=== PATIENT | female | born 1950 | race Caucasian/White ===

== ENCOUNTER 2016-06-18 12:16 | Inpatient (IN) | payer OTHER ==
[~2016-06-18] VITALS: Ht 157.5 cm; Wt 81.6 kg
--- NOTE | 2016-06-18 12:22 | NUR ---
66 Y/O FEMALE C/O "BURNING" PAIN IN CENTER OF CHEST X 1 WEEK; NO PAIN AT REST, ONLY WITH AMBULATION. DENIES SOB. DENIES DIAPHORESIS. DENIES N/V/D BUT STATES PAIN IS WORSE AFTER EATING, "I FEEL LIKE I DONT DIGEST MY FOOD". SAW PMD THURS AND HAD EKG.
[2016-06-18] MEDS ORDERED: DEXILANT60 M1 PO (12:53)
--- NOTE | 2016-06-18 13:06 | ED GENERAL ADULT ---
History of Present Illness General Chief Complaint: General Adult Stated Complaint: BURNING IN CHEST ? ACID REFLUX Source: patient, family, old records Exam Limitations: no limitations Vital Signs & Intake/Output Vital Signs & Intake/Output Vital Signs Date Time Temp Pulse Resp B/P Pulse O2 O2 Flow FiO2 Ox Delivery Rate 06/18 1754 78 20 138/76 100 Room Air 06/18 1616 79 20 131/84 96 Room Air 06/18 1439 73 18 139/80 94 Room Air 06/18 1221 98.6 91 18 172/85 99 Room Air Allergies Coded Allergies: No Known Allergies (06/18/16) Reconcile Medications Dexlansoprazole (Dexilant) 60 MG CAP.BP 1 CAP PO DAILY GI (Reported) Triage Note: 66 Y/O FEMALE C/O "BURNING" PAIN IN CENTER OF CHEST X 1 WEEK; NO PAIN AT REST, ONLY WITH AMBULATION. DENIES SOB. DENIES DIAPHORESIS. DENIES N/V/D BUT STATES PAIN IS WORSE AFTER EATING, "I FEEL LIKE I DONT DIGEST MY FOOD". SAW PMD THURS AND HAD EKG. Triage Nurses Notes Reviewed? yes Onset: Last week Duration: day(s):, constant, continues in ED, getting worse Timing: recent history Injury Environment: home Severity: severe Modifying Factors: Worsens With: movement. Associated Symptoms: chest pain LMP (ages 10-50): post menopausal : No Patient currently breastfeeds: No HPI: 1 week prior to admission patient complains of substernal burning worse with exertion improved with rest progressive from moderate to severe radiating upwards. No pain at rest. She denies fever chills nausea vomiting diarrhea abdominal pain headache dysuria rash bleeding. She has had recent change in her gastroesophageal reflux medications with changes in appetite. Past History Travel History Traveled to [place] past 21 day No Medical History Any Pertinent Medical History? 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 No Review of Systems Review of Systems Constitutional: Reports: no symptoms. EENTM: Reports: no symptoms. Respiratory: Reports: no symptoms. Cardiovascular: Reports: see HPI. GI: Reports: see HPI, nausea. Genitourinary: Reports: no symptoms. Musculoskeletal: Reports: no symptoms. Skin: Reports: no symptoms. Neurological/Psychological: Reports: no symptoms. Hematologic/Endocrine: Reports: no symptoms. Immunologic/Allergic: Reports: no symptoms. All Other Systems: Reviewed and Negative Physical Exam Physical Exam General Appearance: well developed/nourished, alert, awake, anxious, moderate distress, obese Head: atraumatic, normal appearance Eyes: Bilateral: normal appearance, PERRL, EOMI. Ears, Nose, Throat: normal pharynx, normal ENT inspection Neck: normal inspection, supple, full range of motion, no midline tenderness Respiratory: normal breath sounds, chest non-tender, no respiratory distress, quiet respiration, lungs clear Cardiovascular: regular rate/rhythm, normal peripheral pulses, norml femoral pulses equa Peripheral Pulses: 4+ carotid (R), 4+ carotid (L), 2+ radial (R), 2+ radial (L) Gastrointestinal: normal bowel sounds, soft, non-tender, no organomegaly Back: normal inspection, normal range of motion, no vertebral tenderness Extremities: normal inspection, normal capillary refill, normal range of motion, no edema Neurologic/Psych: no motor/sensory deficits, awake, alert, oriented x 3, normal gait, normal mood/affect, tunnel mucker II-XII nml as tested Reflexes: 2+: bicep (R), bicep (L). Skin: intact, normal color, warm/dry Lymphatic: no anterior cervical gordon Core Measures ACS in differential dx? Yes CVA/TIA Diagnosis: No Severe Sepsis Present: No Septic Shock Present: No Progress Differential Diagnoses I considered the following diagnoses in my evaluation of the patient: GERD chest pain syndrome Plan of Care: Orders Procedure Date/time Status Heart Healthy Diet 06/19 B Active OXYGEN SETUP (GEN) 06/18 175 Active Saline Lock 06/[address] in observation 06/18 1752 Active Vital Signs 06/18 1752 Active Activity/Ambulation 06/18 175 Active Code Status 06/18 1752 Active TROPONIN LEVEL 06/18 1610 Complete EKG 06/18 1610 Active TROPONIN LEVEL 06/18 1253 Complete LIPASE 06/18 1253 Complete COMPREHENSIVE METABOLIC PANEL 06/18 1253 Complete CBC WITHOUT DIFFERENTIAL 06/18 1253 Complete EKG 06/18 1222 Active Laboratory Tests 06/18/16 1620: Troponin I 0.10 06/18/16 1308: Anion Gap 16, Estimated GFR > 60, BUN/Creatinine Ratio 10.0, Glucose 108 H, Calcium 9.6, Total Bilirubin 0.7, AST 26, ALT 36, Alkaline Phosphatase 94, Troponin I 0.05, Total Protein 7.9, Albumin 4.6, Globulin 3.3, Albumin/Globulin Ratio 1.4, Lipase 77, CBC w Diff NO MAN DIFF REQ, RBC 4.97, MCV 83.8, MCH 28.7, RDW 12.6, MPV 8.8, Gran % 75.8 H, Lymphocytes % 17.4 L, Monocytes % 4.7, Eosinophils % 1.8, Basophils % 0.3, Absolute Granulocytes 5.2, Absolute Lymphocytes 1.2, Absolute Monocytes 0.3, Absolute Eosinophils 0.1, Absolute Basophils 0, PUBS MCHC 34.3 Diagnostic Imaging: Viewed by Me: Radiology Read. Discussed w/RAD: Radiology Read. CXR Impression: no acute abnormality, no infiltrates Initial ED EKG: normal axis, normal intervals, normal p-waves, normal QRS complex, normal sinus rhythm, LVH, no ST T wave changes Repeat EKG: unchanged Rhythm Strip: normal sinus rhythm Comments: Repeat troponin doubled with continued but improved chest burning. No aspirin given due to history of GERD and GI upset. Little improvement in pain with NTG Departure Departure Time of Disposition: 1819 Disposition: STILL A PATIENT Condition: Stable Clinical Impression Primary Impression: Chest pain syndrome Secondary Impressions: GERD with esophagitis Referrals: STACY WATERS,INO Romeo (PCP/Family) Departure Forms: Customer Survey General Discharge Information Observation Note Spoke With: OTONIEL WORLEY MD Physician Advisor Notified: LISSETT WATERS,LANETTE [address] Place Patient In: Non-ED OBS Care Area Rationale for Observation: My rational for observation is as follows serial lab exam serial EKG cardiology evaluation medication adjustment echocardiogram cardiac monitoring continuing care discharge planning. Critical Care Note Critical Care Note Critical Care Time: 30-74 min (40)
--- NOTE | 2016-06-18 13:18 | NUR ---
PT MEDICATED PER ORDER, COMPLAINS OF MID CHEST BURNING WHEN SHE LAYS FLAT OR WALKS, DENIES DISCOMFORT WHEN SHE IS SITTING UP, DENIES SOB. NSR ON MONITOR HR 82. FAMILY AT BEDSIDE
--- NOTE | 2016-06-18 13:19 | RADIOLOGY REPORT ---
EXAMINATION: XR PORTABLE CHEST CLINICAL INFORMATION: Hiatal hernia. Worsening chest pain with reflux. COMPARISON: None. TECHNIQUE: 70 degrees AP semierect chest exam. FINDINGS: Both lungs are fairly well-expanded and clear of acute process. The heart size and pulmonary vascularity is normal. No gross bony abnormality seen. IMPRESSION: Unremarkable chest exam.
[2016-06-18 13:27] LABS: ABSOLUTE BASOPHIL COUNT 0 /CUMM (0.0-0.2); ABSOLUTE EOSINOPHIL COUNT 0.1 /CUMM (0.0-0.7); ABSOLUTE GRANULOCYTE CT 5.2 /CUMM (1.4-6.5); ABSOLUTE LYMPH COUNT 1.2 /CUMM (1.2-3.4); ABSOLUTE MONOCYTE COUNT 0.3 /CUMM (0.10-0.60); BASOPHIL % 0.3 % (0.0-2.0); EOSINOPHIL % 1.8 % (0-5); GRANULOCYTE % 75.8 % (42.2-75.2); HEMATOCRIT 41.6 % (37-47); MEAN CORPUSCULAR HGB 28.7 PG (27.0-31.0); MEAN CORPUSCULAR HGB CONC 34.3 G/DL (33.0-37.0); MEAN CORPUSCULAR VOLUME 83.8 FL (81.0-99.0); MEAN PLATELET VOLUME 8.8 FL (7.4-10.4); PLATELET COUNT 270 /CUMM (130-400); RBC DISTRIBUTION WIDTH 12.6 % (11.5-14.5); RED BLOOD CELL CT 4.97 /CUMM (4.20-5.40); WHITE BLOOD CELL COUNT 6.8 /CUMM (4.8-10.8)
--- NOTE | 2016-06-18 13:31 | NUR ---
PT STATES ESOPHAGEAL BURNING IS GONE, BUT STILL HAS EPIGASTRIC PAIN.
--- NOTE | 2016-06-18 16:15 | NUR ---
REPEAT EKG AND TROPONIN DONE.
--- NOTE | 2016-06-18 17:35 | NUR ---
NTG GR 1/150 GIVEN SL.
--- NOTE | 2016-06-18 17:45 | NUR ---
DIETARY CALLED FOR DINNER TRAY. (HEART HEALTHY)
--- NOTE | 2016-06-18 17:53 | NUR ---
PAIN UNCHANGED WITH NTG.
--- NOTE | 2016-06-18 20:20 | History & Physical ---
ANH LOYOLA MD 06/18/16 2019: General Information and HPI MD Statement: I have seen and personally examined RAY HOGAN and documented this H&P. The patient is a 66 year old F who presented with a patient stated chief complaint of [burning chest pain]. Source of Information: patient Exam Limitations: no limitations History of Present Illness: 66-year-old female with PMH of GERD and hiatal hernia for 20 years, presented with burning chest pain of 1 week duration. The pain is located over the sternum and intermittently radiates to the back. She described the pain as burning in both the chest and the back. Denied tearing pain. She does not have the pain when she is sitting up, but have the pain on ambulation and lying down. Hence, she has been sleeping on the chair to avoid the pain. She has been taking ibuprofen and baby aspirin with no relief. She reports feeling "rumbly" like she is feeling hungry. She went to her PCP yesterday who did an EKG on her and changed her exedrine to dexilant. She has been taking dexilant also with no relief. In terms of diet, she does not eat big meals. She usually eats chicken, and denies spicy food. She usually has her dinner around 5pm and does not go to sleep shortly after. FH: dad has DM at old age, and mom has a pacemaker SH: She smoked less than 1 ppd for 20 years, and quit 7 months ago. of lung cancer. She has recently been retired, and claims to have been keeping busy. She used to work at [employer]. She lives with her daughter and son. Her only medications are dexilant, ibuprofen, and baby aspirin that she takes as needed. On ROS, she denies fever, chills, sick contacts, diaphoresis, palpitations, shortness of breath, cough, abdominal pain, nausea, vomiting, swelling of extremities. Her vitals in the ED T 98.6, SC 91, RR 18, BP 172/85, 99% on RA. Her BP improved to 138/65. She was sitting comfortably on the chair and appears to be in no distress. Her examinations are completely benign, without any JVD, murmurs, edema, bruit. EKG SC 75, SC 160, QTc 429, normal axis. T wave inversion on V1. Of note, EKG from 06/14/[address] depression on lead II and III. Trop in ED 0.05 --> 0.10. 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 Home Who Do You Live With? child Services at Home: None Smoking Status: Former Smoker ETOH Use: denies use Illicit Drug Use: denies illicit drug use Functional Ability ADLs Independent: dressing, eating, toileting, bathing. Ambulation: independent IADLs Independent: shopping, housework, finances, food prep, telephone, transportation , medication admin. Review of Systems Review of Systems Constitutional: Denies: chills, diaphoresis, fever. EENTM: Denies: visual changes. Cardiovascular: Reports: chest pain. Denies: edema, orthopena, palpitations, peripheral edema. Respiratory: Denies: cough, hemoptysis, short of breath, sputum production, wheezing. GI: Denies: abdominal pain, bloating, constipation, diarrhea, melena, nausea, bloody stool, changes in stool, vomiting. Exam & Diagnostic Data Last 24 Hrs of Vital Signs/I&O Vital Signs Date Time Temp Pulse Resp B/P Pulse O2 O2 Flow FiO2 Ox Delivery Rate 06/18 1999 77 15 138/65 96 Room Air 06/18 1754 78 20 138/76 100 Room Air 06/18 1616 79 20 131/84 96 Room Air 06/18 1439 73 18 139/80 94 Room Air 06/18 1221 98.6 91 18 172/85 99 Room Air Intake & Output 06/18 1600 06/18 0800 06/18 0000 Intake Total 50 Output Total Balance 50 Intake, IV 50 Patient 83.915 kg Weight Physical Exam General Appearance Alert, Oriented X3, Cooperative, No Acute Distress Skin No Significant Lesion, well healed scar from previous spine surgery HEENT Atraumatic, PERRLA, EOMI, Mucous Membr. moist/pink Neck Supple, No JVD Lymphatic Axillary nl, Cervical nl Cardiovascular Regular Rate, Normal S1, Normal S2, No Murmurs, Gallops, Rubs, no carotid bruit Lungs Clear to Auscultation, Normal Air Movement Abdomen Normal Bowel Sounds, Soft, No Tenderness Neurological Normal Speech Extremities No Edema Vascular Normal Pulses, Pulses Symmetrical Last 24 Hrs of Labs/Johnnie: Laboratory Tests 06/18/16 1620: Troponin I 0.10 06/18/16 1308: Anion Gap 16, Estimated GFR > 60, BUN/Creatinine Ratio 10.0, Glucose 108 H, Calcium 9.6, Total Bilirubin 0.7, AST 26, ALT 36, Alkaline Phosphatase 94, Troponin I 0.05, Total Protein 7.9, Albumin 4.6, Globulin 3.3, Albumin/Globulin Ratio 1.4, Lipase 77, CBC w Diff NO MAN DIFF REQ, RBC 4.97, MCV 83.8, MCH 28.7, RDW 12.6, MPV 8.8, Gran % 75.8 H, Lymphocytes % 17.4 L, Monocytes % 4.7, Eosinophils % 1.8, Basophils % 0.3, Absolute Granulocytes 5.2, Absolute Lymphocytes 1.2, Absolute Monocytes 0.3, Absolute Eosinophils 0.1, Absolute Basophils 0, PUBS MCHC 34.3 Assessment/Plan Assessment: 66-year-old female with PMH of GERD and hiatal hernia for 20 years, presented with burning chest pain of 1 week duration. Although her signs and symptoms are more likely an exacerbation of her reflux disease vs chronic stable angina, given her age, acute coronary syndrome needs to be ruled out. She also noted radiating pain to the back, however aortic dissection less likely given BP 147/ 65 on left arm and 144/54 on right arm. # Burning chest pain most likely due to GERD vs ACS - Given 1 X famotidine, metoclopromide, nitrostat in ED * Observe in telemetry * Serial trops and EKG: Trop 0.05 --> 0.[address] changes. Only T wave inversion in V1. * Baseline echocardiogram * Lipid panel: LDL elevated, consider starting statin * follow hba1c * Monitor BP, consider starting BB * Cardiology consult in AM, consider stress test as an OP * IV Protonix 40 daily * Zofran for nausea * Consider GI consult in AM vs outpatient GI follow up for endoscopy (she has not followed with GI in 20 years) Diet: Heart healthy DVT ppx: pharm and mechanical FULL CODE As Ranked By This Provider Problem List: 1. GERD with esophagitis 2. Chest pain syndrome Core Measures/Miscellaneous Acute Coronary Syndrome ACS Diagnosis: No Cerebrovascular Accident CVA/TIA Diagnosis: No Congestive Heart Failure CHF Diagnosis: No Venous Thromboembolism VTE Risk Factors: Acute medical illness, Age > 40 VTE Prophylaxis Ordered Inpt: Mech & Pharm No Mech VTE prophylaxis d/t: No contraindications No VTE Pharm Prophylaxis d/t: No contraindications VTE Diagnosis: No VTE Type: NONE VTE Confirmed by (Test): NONE Severe Sepsis Severe Sepsis Present: No Septic Shock Septic Shock Present: No Miscellaneous Documentation Attending Case Discussed With: TOONIEL WORLEY MD Primary Care Physician: INO KUMAR MD Patient sees these Specialists None Level of Patient Care: Telemetry JULIO CESAR LORENZANA 06/18/162114: Resident Review Statement Resident Statement: examined this patient, discussed with internet ecommerce specialist Other Findings: Patient is a 66-year-old female with past medical history of hiatal hernia( diagnosed 20 years ago), reflux disease presented to the ED with a chief complaint of burning substernal chest pain for the last 7 days. Patient states that she has been having burning chest pain that started about 7 days ago. The pain is located in the center of the chest, 10/10 intensity even worse, continuous, burning in nature, radiating to her back. The CP worsens with exertion. Pain gets worse on lying down and improves with sitting up. She denies any associated nausea, vomiting, palpitations, shortness of breath, dizziness, diaphoresis. No association with food intake. She took ibuprofen over the past 7 days with no improvement. Also started taking baby aspirin for the last 3 days. She saw her PCP a week ago who prescribed lansoprazole which she has been taking for the past 2 days with no improvement in her symptoms. She has history of hiatal hernia diagnosed 20 years ago. She never had an EGD/colonoscopy after that. No history of cardiac disease. Never seen her clinical nursing instructor/never had a echocardiogram. At baseline, patient is currently retired. Worked at [employer]. She is a ex- smoker, quit 7 months ago. Smoked less than one pack per day for the last 20 years. No alcohol/drug abuse. Family history of diabetes in father and pacemaker in mother. of lung cancer. The active at baseline with no significant past medical history. Vitals in the ED temperature 98.6, pulse rate 91, respiration 18, blood pressure 172/ 85, pulse ox 99% on room air. Benign labs with 2 sets of troponins 0.05 and 0.10. EKG showed normal sinus rhythm, 75 bpm, T-wave inversion seen in aVR, V1(similar to EKG from 06/14/2016). Physical examination: Gen.: Awake alert oriented 3, no distress HEENT: PERRLA, EOMI, scar seen on the neck from previous cervical fusion surgery. Chest: Normal breath sounds, no adventitious sounds CVS: Regular rate and rhythm, no murmurs rubs or gallops Abdomen: Normal breath sounds, no tenderness guarding or rigidity Extremities: No edema, pulses intact Plan: 1.Chest pain radiating to the back: Differentials could be ACS versus Aortic dissection Vs reflux esophagitis. Patient received Pepcid and metoclopramide with nitroglycerin in the ER with improvement in her symptoms. No widening of mediastimun seen on CXR. BP 147/65 and 144/64 in both arms. -Admit to telemetry -3 sets of troponins and EKG to rule out ACS -Baseline echocardiogram -Protonix 40 daily for GERD -Zofran when necessary for nausea -Check lipid panel and hemoglobin A1c -Start baby aspirin -Consider starting patient on a small dose beta jose -Possible stress test as an outpatient for cardiac risk stratification. 2. History of hiatal hernia/worsening reflux symptoms -Continue Protonix 40 mg daily for now -Follow up as an outpatient for possible endoscopy(last endoscopy was 20 years ago) Heart healthy diet DVT prophylaxis subcutaneous Lovenox Full code Mild pain pathway OTONIEL WORLEY 06/19/16 0211: Attending MD Review Statement Attending Statement Attending MD Statement: examined this patient, discuss w/resident/PA/PRE SALES ARCHITECT, agreed w/resident/PA/PRE SALES ARCHITECT, discussed with family, reviewed EMR data (avail), reviewed images, amended to note Attending Assessment/Plan: Cc: Chest pain PMHX: Hiatal hernia, HLD not on treatment (controlled after weight loss) Patient complaining of chest pain and heartburn since 1 week on and off more with exertion, food and relieved by rest, not associated with diaphoresis, shortness of breath or cough. Pain is nonradiating, non-shifting. She did not notice similar kind of pain before. Patient was exercising for weight loss, but has stopped so since last 1 week because of the pain. She Was seen by PCP outpatient and EKG was obtained, was sent to ER to rule out ACS. Patient also complains of some epigastric pain going to her back. No nausea, vomiting, constipation or diarrhea no blood in the stool. Vitals: Afebrile, HR, RR, BP, O2 saturation within acceptable range. On examination: A O 3, no acute distress, comfortably sitting, no JVD, no lymphadenopathy, neck supple. CVS: S1-S2, RRR. RS: Clear entry bilaterally present. Abdomen: Soft, NT, ND, bowel sounds present, no Crain sign. No focal neurological deficit, no dependent edema. Labs: CBC, BMP, LFT, lipase unremarkable. Troponin 0.05 which is negative on presentation doubled 0.10, still normal, EKG: Done at presentation has very minimal ST depression at the V3 V4 V5 but repeat EKG did not show that change. Chest x-ray: Unremarkable A and P #1 chest pain: Patient has long-standing history of hiatus hernia and GERD and was taking intermittent medications, was started on PPI recently by PCP without much relief. Patient has exertional pain, goes more in favor of chronic stable angina. Rule out ACS, admitted in telemetry, repeat EKG, trend troponin, informed clinical nursing instructor. Echocardiogram in a.m., probably stress test outpatient. Cardiac risk factors include smoking and dyslipidemia. Check hemoglobin A1c, check lipid panel, one dose of aspirin today. Check blood pressure in both arms. Patient does not have any premature cardiac history and family. Continue PPI. Outpatient GI follow-up for probable endoscopy. #2 DVT prophylaxis with Lovenox, pain management.
[2016-06-19 06:07] VITALS: BP 165/77
--- NOTE | 2016-06-19 08:19 | PN- Housestaff ---
ELYSSA KERN 06/19/16 0818: Subjective Follow-up For: -chest pain Complaints: c/o chest pain, better than yday, worse on exertion Subjective: I have seen and examined the patient today morning. She is doing okay, she says that her pain is better however she still has chest pain on exertion. Her vitals as stable, she remained afebrile overnight, blood pressure 165/77, she is 96% saturating on room air. Review of Systems Constitutional: Reports: see HPI. EENTM: Denies: blurred vision, double vision, visual changes, eye pain. Cardiovascular: Reports: chest pain. Denies: palpitations, peripheral edema, syncope. Respiratory: Denies: cough, hemoptysis, orthopnea, short of breath, sputum production, stridor, wheezing. Gastrointestinal: Reports: no symptoms. Genitourinary: Reports: no symptoms. Musculoskeletal: Reports: no symptoms. Objective Last 24 Hrs of Vital Signs/I&O Vital Signs Date Time Temp Pulse Resp B/P Pulse O2 O2 Flow FiO2 Ox Delivery Rate 06/19 0607 97.5 81 13 165/77 96 Room Air 06/19 0238 Room Air 06/18 2250 97.4 83 20 146/80 97 Room Air 06/18 2000 77 15 138/65 96 Room Air 06/18 1754 78 20 138/76 100 Room Air 06/18 1616 79 20 131/84 96 Room Air 06/18 1439 73 18 139/80 94 Room Air 06/18 1221 98.6 91 18 172/85 99 Room Air Intake & Output 06/19 1600 06/19 0800 06/19 0000 Intake Total Output Total Balance Patient 81.647 kg Weight Physical Exam General Appearance: Alert, Oriented X3, Cooperative, No Acute Distress Skin: No Rashes, No Breakdown, No Significant Lesion HEENT: Atraumatic, PERRLA, EOMI Neck: Supple, No JVD, No thryomegaly Lymphatic: no lad Cardiovascular: Regular Rate, Normal S1, Normal S2, No Murmurs Lungs: Normal Air Movement Abdomen: Normal Bowel Sounds, Soft, No Tenderness Extremities: No Clubbing, No Cyanosis Vascular: Normal Pulses Current Medications: Current Medications Sig/Raffi Start time Last Medication Dose Route Stop Time Status Admin Acetaminophen 325 MG Q6P PRN 06/18 2030 AC PO Aspirin 81 MG DAILY 06/19 1000 AC PO Enoxaparin Sodium 40 MG DAILY 06/19 1000 AC SC Famotidine 0 .STK-MED ONE 06/18 1313 DC IV Famotidine 20 MG ONCE ONE 06/18 1300 DC 06/18 IV 06/18 1301 1318 Metoclopramide HCl 0 .STK-MED ONE 06/18 1313 DC .ROUTE Metoclopramide HCl 10 MG ONCE ONE 06/18 1300 DC 06/18 IV 06/18 1301 1318 Nitroglycerin 0.4 MG ONCE ONE 06/18 1745 DC 06/18 SL 06/18 1746 1735 Omeprazole 40 MG DAILY AC 06/19 0700 AC 06/19 PO 0608 Omeprazole 0 .STK-MED ONE 06/19 0607 DC PO Last 24 Hrs of Lab/Johnnie Results Last 24 Hrs of Labs/Mics: Laboratory Tests 06/19/16 0153: Troponin I 0.06 06/18/16 1620: Troponin I 0.10 06/18/16 1308: Hemoglobin A1c Pending 06/18/16 1308: Anion Gap 16, Estimated GFR > 60, BUN/Creatinine Ratio 10.0, Glucose 108 H, Calcium 9.6, Total Bilirubin 0.7, AST 26, ALT 36, Alkaline Phosphatase 94, Troponin I 0.05, Total Protein 7.9, Albumin 4.6, Globulin 3.3, Albumin/Globulin Ratio 1.4, Triglycerides 316 H, Cholesterol 269 H, LDL Cholesterol, Calc 166 H, HDL Cholesterol 40, Cholesterol/HDL Ratio 7 H, Lipase 77, CBC w Diff NO MAN DIFF REQ, RBC 4.97, MCV 83.8, MCH 28.7, RDW 12.6, MPV 8.8, Gran % 75.8 H, Lymphocytes % 17.4 L, Monocytes % 4.7, Eosinophils % 1.8, Basophils % 0.3, Absolute Granulocytes 5.2, Absolute Lymphocytes 1.2, Absolute Monocytes 0.3, Absolute Eosinophils 0.1, Absolute Basophils 0, PUBS MCHC 34.3 Lines/Diet/Fluids Restraints: none Assessment/Plan Assessment: A 66-year-old female with past medical history of GERD, hiatal hernia came in to [facility] last night with midsternal chest discomfort which has been there on and off since last 7 days, especially worse on exertion. She tried taking antireflux agents, this improved her symptoms mildly however she continued to have chest pain with right she came in to [facility]. Her troponins were trended from 0.05..... 0.10..... 0.06 Her vitals were stable today, she remained afebrile, however blood pressure is slightly on the higher side 165/77 today morning, she is 96% saturating on room air. EKG on admission, pulse is 75, WI of 160, QTC of 429, normal axis, T-wave inversions were noted in V1, also her previous EKG from 05/28/[address] depression in leads 2 and 3. Problem list along with assessment and plan #1 Chest pain, unstable angina, rule out acute coronary syndrome. Continue monitor and storage bin tender, 3 sets of troponins were trended and were found to be as above. We will continue Protonix 40 mg daily. Echocardiogram order placed, results awaited. Continue baby aspirin once daily. Patient was started on 40 mg daily on atorvastatin. Up with profile was tested on admission- glyceride 316, cholesterol 269, LDL 166 and HDL 40. Patient's symptoms are worse on exertion, chest pain has been on and off, EKG has nonspecific ST-T wave changes, therefore as per cardiology, patient to be planned for elective cardiac cath on this admission. We'll hold off heparin GTT for now. #2 history of hiatal hernia/GERD. Continue Protonix 40 mg daily. Outpatient follow-up with GI to be considered. Continue heart healthy diet. DVT prophylaxis Lovenox Full code Mild pain pathway. Problem List: 1. Chest pain syndrome 2. GERD with esophagitis 3. Angina of effort Pain Ratin Pain Location: substernal Pain Goal: Remain pain free Pain Plan: mild PP Tomorrow's Labs & Rationales: not needed DVT/Prophylaxis: pharmacological JOEL WATERS,THANG 06/19/16 1529: Attending MD Review Statement Attending Statement Attending MD Statement: examined this patient, discuss w/resident/PA/CLERICAL ADVISER, agreed w/resident/PA/CLERICAL ADVISER, reviewed EMR data (avail), discussed with nursing Attending Assessment/Plan: 66 year old female, postmenopausal with previous smoking history and family history of diabetes is here with exertional chest pain. Her symptoms are clearly on ambulation alone and do not appear on rest. Given the significance of her risk factors I'm uncomfortable discharging her. I spoke to Dr. Palomares about this. He agrees and feels that the patient should be watched here, ruled out with serial enzymes and EKG, start on aspirin and statin and likely cardiac cath tomorrow versus first available spot.
--- NOTE | 2016-06-19 12:46 | Cons- Cardiology ---
General Information and HPI Consulting Request Date of Consult: 06/19/16 Requested By: JOEL WATERS,RASHMI Lock Reason for Consult: Chest pain Source of Information: patient, family History of Present Illness: This is a 66 y/o Female with a PMH of GERD, hiatal hernia, and previous tobacco use who presents to [facility] with a chief complaint of moderate intensity mid-sternal chest discomfort, described as a burning sensation without radiation. She notes that the symptoms have been occurring with exertion and relieved with rest. Denies associated dyspnea or palpitations. Previous GERD symptoms made worse with spicy foods but current symptoms seem more exertional and not obviously positional. On my interview with her she denied active symptoms at rest. Reports she was recently changed to dexilant without improvement in her symptoms. Denies PND, edema, syncope, SANDOVAL, slurring of speech, vomiting, or diarrhea. Denies previous cardiac work-up. She thinks the Nitroglycerin did help somewhat. Allergies/Medications Allergies: Coded Allergies: No Known Allergies (06/18/16) Home Med List: Dexlansoprazole (Dexilant) 60 MG CAP.BP 1 CAP PO DAILY GI (Reported) Current Medications: Current Medications Sig/Raffi Start time Last Medication Dose Route Stop Time Status Admin Acetaminophen 325 MG Q6P PRN 06/18 2030 AC PO Aspirin 0 .STK-MED ONE 06/19 1045 DC PO Aspirin 81 MG DAILY 06/19 1000 AC 06/19 PO 1054 Enoxaparin Sodium 40 MG DAILY 06/19 1000 AC SC Famotidine 0 .STK-MED ONE 06/18 1313 DC IV Famotidine 20 MG ONCE ONE 06/18 1300 DC 06/18 IV 06/18 1301 1318 Metoclopramide HCl 0 .STK-MED ONE 06/18 1313 DC .ROUTE Metoclopramide HCl 10 MG ONCE ONE 06/18 1300 DC 06/18 IV 06/18 1301 1318 Nitroglycerin 0.4 MG ONCE ONE 06/18 1745 DC 06/18 SL 06/18 1746 1735 Omeprazole 40 MG DAILY AC 06/19 0700 AC 06/19 PO 0608 Omeprazole 0 .STK-MED ONE 06/19 0607 DC PO Review of Systems Review of Systems: Review of systems as per HPI. The remainder of a 10 point review of systems was reviewed and was otherwise negative. Past History Travel History Traveled to [place] past 21 day No Medical History Neurological: NONE EENT: NONE Respiratory: NONE Gastrointestinal: GERD, hiatal hernia Hepatic: NONE Renal: NONE Musculoskeletal: NONE Psychiatric: NONE Endocrine: NONE Blood Disorders: NONE Cancer(s): NONE CLIENT CARE REPRESENTATIVE/Reproductive: NONE Surgical History Surgical History: non-contributory Family History Relations & Conditions If Any: MOTHER Pacemaker FATHER FH: diabetes mellitus Psychosocial History Where Do You Live? Home Who Do You Live With? child Services at Home: None Smoking Status: Former Smoker ETOH Use: denies use Illicit Drug Use: denies illicit drug use Functional Ability ADLs Independent: dressing, eating, toileting, bathing. Ambulation: independent IADLs Independent: shopping, housework, finances, food prep, telephone, transportation , medication admin. Exam & Diagnostic Data Vital Signs and I&O Vital Signs Date Time Temp Pulse Resp B/P Pulse O2 O2 Flow FiO2 Ox Delivery Rate 06/19 0607 97.5 81 13 165/77 96 Room Air 06/19 0238 Room Air 06/18 2250 97.4 83 20 146/80 97 Room Air 06/18 2000 77 15 138/65 96 Room Air 06/18 1754 78 20 138/76 100 Room Air 06/18 1616 79 20 131/84 96 Room Air 06/18 1439 73 18 139/80 94 Room Air Intake & Output 06/19 1600 06/19 0800 06/19 0000 06/18 1600 06/18 0800 06/18 0000 Intake Total 50 Output Total Balance 50 Intake, IV 50 Patient 180 lb 185 lb Weight Physical Exam: General: No distress. Eyes: No obvious scleral icterus. HEENT: No jugular venous distention or abnormal jugular venous pulsations. Cardiovascular: Normal intensity S1/S2. Regular. Respiratory: no rales or ronchi Abdomen: soft, no rebound tenderness Musculoskeletal: No cyanosis noted, no edema Skin: Warm Neurologic: No gross focal deficits noted. Labs/Johnnie Results: Laboratory Tests 06/19 06/18 06/18 06/18 0153 1620 1308 1308 Chemistry Sodium (137 - 145 mmol/L) 139 Potassium (3.5 - 5.1 mmol/L) 4.1 Chloride (98 - 107 mmol/L) 100 Carbon Dioxide (22 - 30 mmol/L) 23 Anion Gap (5 - 16) 16 BUN (7 - 17 mg/dL) 9 Creatinine (0.5 - 1.0 mg/dL) 0.9 Estimated GFR (>60 ml/min) > 60 BUN/Creatinine Ratio (7 - 25 %) 10.0 Glucose (65 - 99 mg/dL) 108 H Hemoglobin A1c Pending Calcium (8.4 - 10.2 mg/dL) 9.6 Total Bilirubin (0.2 - 1.3 mg/dL) 0.7 AST (14 - 36 U/L) 26 ALT (9 - 52 U/L) 36 Alkaline Phosphatase (<127 U/L) 94 Troponin I (< 0.11 ng/ml) 0.06 0.10 0.05 Total Protein (6.3 - 8.2 g/dL) 7.9 Albumin (3.5 - 5.0 g/dL) 4.6 Globulin (1.9 - 4.2 gm/dL) 3.3 Albumin/Globulin Ratio (1.1 - 2.2 %) 1.4 Triglycerides (<150 mg/dL) 316 H Cholesterol (<200 MG/DL) 269 H LDL Cholesterol, Calc (65 - 129 mg/dL) 166 H HDL Cholesterol (40 - 60 mg/dL) 40 Cholesterol/HDL Ratio (0.00 - 4.23 %) 7 H Lipase (23 - 300 U/L) 77 Hematology CBC w Diff NO MAN DIFF REQ WBC (4.8 - 10.8 /CUMM) 6.8 RBC (4.20 - 5.40 /CUMM) 4.97 Hgb (12.0 - 16.0 G/DL) 14.3 Hct (37 - 47 %) 41.6 MCV (81.0 - 99.0 FL) 83.8 MCH (27.0 - 31.0 PG) 28.7 RDW (11.5 - 14.5 %) 12.6 Plt Count (130 - 400 /CUMM) 270 MPV (7.4 - 10.4 FL) 8.8 Gran % (42.2 - 75.2 %) 75.8 H Lymphocytes % (20.5 - 51.1 %) 17.4 L Monocytes % (1.7 - 9.3 %) 4.7 Eosinophils % (0 - 5 %) 1.8 Basophils % (0.0 - 2.0 %) 0.3 Absolute Granulocytes (1.4 - 6.5 /CUMM) 5.2 Absolute Lymphocytes (1.2 - 3.4 /CUMM) 1.2 Absolute Monocytes (0.10 - 0.60 /CUMM) 0.3 Absolute Eosinophils (0.0 - 0.7 /CUMM) 0.1 Absolute Basophils (0.0 - 0.2 /CUMM) 0 PUBS MCHC (33.0 - 37.0 G/DL) 34.3 Diagnostic Data EKG Results Tracing personally reviewed, Shows SR at 70 bpm, possible LVH, abnormal T wave V1-V2 CXR Results Unremarkable chest exam. Assessment/Plan Assessment/Plan 1. New onset exertional chest pain 2. Hx of GERD 3. Hx of hiatal hernia 4. Ex-tobacco use 5. Abnormal ECG While she does carry a GI history she reports that her recent symptoms are exertional in nature which is concerning for unstable angina. She does have cardiac risk factors. I discussed with the patient and her family at length regarding options for ischemic work-up including associated risks versus benefits of various options. Given the exertional symptoms she favors obtaining a definitive diagnosis and wishes to proceed with cardiac catheterization. Would obtain an Echo. Keep on telemetry. Agree with empiric statin and ASA tx for now. If no obstructive CAD on cardiac cath will need GI consult in the near future ( she was planning on seeing Dr. Posey soon). Would not start Heparin gtt for now as acute plaque rupture seems unlikely. Discussed the plan with her medical attending, Dr. Rashmi Soto, and we are in agreement (as is the patient and her family). Pee Palomares MD [facility] Consult Acknowledgment - Thank you for your consult request.
--- NOTE | 2016-06-19 13:55 | NUR ---
PATIENT REMAINS ALERT AND ORIENTATED X3. VSS. C/O CP WITH ACTIVITIES. NSR ON MONITOR. DIRECTOR SOFTWARE LATRICIA. AWAITS ECHOCARDIOGRAM. TOLORATED DIET. INDEPENDENT TO BATHROOM. WILL CONTINUE WITH CURRENT PLAN OF CARE.
--- NOTE | 2016-06-19 18:35 | NUR ---
PT MEDICATED WITH TYLENOL PER EMAR FOR HEADACHE. AWAITING FOOD TRAY.
[2016-06-19 18:55] VITALS: BP 147/65
[2016-06-19 23:53] VITALS: BP 120/58
[2016-06-20 05:28] LABS: ABSOLUTE BASOPHIL COUNT 0.1 /CUMM (0.0-0.2); ABSOLUTE EOSINOPHIL COUNT 0.2 /CUMM (0.0-0.7); ABSOLUTE GRANULOCYTE CT 2.9 /CUMM (1.4-6.5); ABSOLUTE LYMPH COUNT 2.2 /CUMM (1.2-3.4); ABSOLUTE MONOCYTE COUNT 0.5 /CUMM (0.10-0.60); BASOPHIL % 1.1 % (0.0-2.0); EOSINOPHIL % 3.8 % (0-5); GRANULOCYTE % 48.7 % (42.2-75.2); HEMATOCRIT 39.5 % (37-47); MEAN CORPUSCULAR HGB 28.6 PG (27.0-31.0); MEAN CORPUSCULAR HGB CONC 33.7 G/DL (33.0-37.0); MEAN CORPUSCULAR VOLUME 84.9 FL (81.0-99.0); MEAN PLATELET VOLUME 8.4 FL (7.4-10.4); PLATELET COUNT 228 /CUMM (130-400); RBC DISTRIBUTION WIDTH 12.9 % (11.5-14.5); RED BLOOD CELL CT 4.66 /CUMM (4.20-5.40); WHITE BLOOD CELL COUNT 5.9 /CUMM (4.8-10.8)
--- NOTE | 2016-06-20 06:40 | PN- Housestaff ---
ERLINKESHAWNGENE 06/20/16 0640: Subjective Follow-up For: Angina on exertion Complaints: no complaints, c/o substernal CP waxing and waning Subjective: I have seen and examined the pattient today morning, continues ot have pain, but better control. vitals stable, aferile overnight. Review of Systems Constitutional: Reports: see HPI. Objective Last 24 Hrs of Vital Signs/I&O Vital Signs Date Time Temp Pulse Resp B/P Pulse O2 O2 Flow FiO2 Ox Delivery Rate 06/19 2353 98.8 77 18 120/58 95 Room Air 06/19 2208 97.5 75 15 141/64 95 Room Air Room Air 06/19 1855 99.7 77 15 147/65 96 Room Air Room Air 06/19 1737 97.7 77 18 147/65 96 Intake & Output 06/20 0800 06/20 0000 06/19 1600 Intake Total 240 400 480 Output Total Balance 240 400 480 Intake, IV 0 0 Intake, Oral 240 400 480 Number 0 0 Bowel Movements Physical Exam General Appearance: Alert, Oriented X3, Cooperative, No Acute Distress Skin: No Rashes, No Breakdown, No Significant Lesion HEENT: Atraumatic, PERRLA, EOMI Neck: Supple, No JVD, No thryomegaly Cardiovascular: Normal S1, Normal S2, No Murmurs Lungs: Clear to Auscultation, Normal Air Movement Abdomen: Normal Bowel Sounds, Soft, No Tenderness Extremities: No Clubbing, No Cyanosis, No Edema, Normal Pulses Vascular: Normal Pulses Current Medications: Current Medications Sig/Raffi Start time Last Medication Dose Route Stop Time Status Admin Acetaminophen 0 .STK-MED ONE 06/19 1833 DC PO Acetaminophen 325 MG Q6P PRN 06/18 2030 AC 06/19 PO 1835 Aspirin 0 .STK-MED ONE 06/19 1045 DC PO Aspirin 81 MG DAILY 06/19 1000 AC 06/19 PO 1054 Atorvastatin Calcium 40 MG 1700 06/19 1700 AC 06/19 PO 1804 Enoxaparin Sodium 0 .STK-MED ONE 06/19 1350 DC SC Enoxaparin Sodium 40 MG DAILY 06/19 1000 AC 06/19 SC 1445 Omeprazole 40 MG DAILY AC 06/19 0700 AC 06/20 PO 0509 Last 24 Hrs of Lab/Johnnie Results Last 24 Hrs of Labs/Mics: Laboratory Tests 06/20/16 0507: Anion Gap 13, Estimated GFR > 60, BUN/Creatinine Ratio 17.8, CBC w Diff NO MAN DIFF REQ, RBC 4.66, MCV 84.9, MCH 28.6, RDW 12.9, MPV 8.4, Gran % 48.7, Lymphocytes % 37.1, Monocytes % 9.3, Eosinophils % 3.8, Basophils % 1.1, Absolute Granulocytes 2.9, Absolute Lymphocytes 2.2, Absolute Monocytes 0.5, Absolute Eosinophils 0.2, Absolute Basophils 0.1, PUBS MCHC 33.7 Lines/Diet/Fluids Restraints: none Assessment/Plan Assessment: This is a 66-year-old female with past medical history of GERD and hiatal hernia for 20 years presented to [place] emergency department - 06/18/2016 with chief complaint of burning type of substernal chest pain for last 7 days, 10 out of 10 , continuous, radiating to her back more worse with exertion and lying down. Vitals at the emergency department were temperature of 98.6, pulse of 91, respiration of 18, blood pressure of 172/85, she was 99% saturating on room air. 2 sets of troponin were found to be 0.05 and 0.10. EKG showed normal sinus rhythm, rate of 75, T-wave inversion in aVR, V1 which were present on the EKG from 06/14/2016. PRoblem List alongwith assesment and plan #1 chest pain, to rule out acute coronary syndrome * Three set of troponin and EKG were found to be 0.05... 0.10...0.06. * EKG from 06/14/[address] depression in lead 2 and 3, current EKG showed pulse of 75, QTC of 429, normal axis and T-wave inversion in V1. * continue aspirin once daily * continue 40 mg of atorvastatin. * Lipid profile was tested, and triglycerides were found to be 316, cholesterol 269, LDL 166 and HDL 40. * Cardiology was on board. * Given her exertional symptoms, it was decided to proceed for cardiac catheterization which is scheduled for the morning of 06/21/2015. * Patient will be transferred to [facility] for the same. * Patient was not started on heparin GTT as acute plaque rupture seems less likely. * She was started on low-dose beta jose Lopressor 25 mg twice a day while inpatient and discharged on the same as well. #2 GERD * Continue PPI Problem List: 1. Chest pain syndrome 2. GERD with esophagitis 3. Angina of effort Pain Ratin Pain Location: chest pain Pain Goal: Remain pain free Pain Plan: tylenol Tomorrow's Labs & Rationales: not needed DVT/Prophylaxis: pharmacological JOEL WATERS,THANG 06/20/16 0945: Attending MD Review Statement Attending Statement Attending MD Statement: examined this patient, discuss w/resident/PA/DIRECTOR OF MEDICAL EDUCATION, agreed w/resident/PA/DIRECTOR OF MEDICAL EDUCATION, reviewed EMR data (avail), discussed with nursing, discussed with case mgmt Attending Assessment/Plan: Patient continues to have ongoing symptoms off burning in her epigastric area and an indigestion feeling. She is a 66-year-old ex-smoker, positive hyperlipidemia and questionable borderline hypertension. Because of her symptoms and her risk factors the plan is a cardiac cath. Appreciate cardiology evaluation and she'll be transferred to Cath in a.m. We have her on aspirin and statin and low-dose beta blockers per cardiology today.
[2016-06-20] MEDS ORDERED: ATORVASTATIN CA40 M1 PO (07:30)
[2016-06-20] MEDS ORDERED: ASPIRIN81 M4 PO (07:31)
--- NOTE | 2016-06-20 07:34 | Patient Discharge Instructions ---
Discharge Instructions General Discharge Information You were seen/treated for: UNSTABLE ANGINA Special Instructions: PLEASE FOLLOW UP WITH YOUR PCP AND GLUE MILL OPERATOR WITHIN ONE WEEK OF DISCHARGE. Diet Continue normal diet: No Recommended Diet: Heart Healthy Activity Full Activity/No Limits: No Activity Self Limited: Yes Acute Coronary Syndrome Inclusion Criteria At DC or during hospital stay patient has or had the following: ACS DIAGNOSIS No Discharge Core Measures Meds if any: Prescribed or Continued at Discharge Meds if any: NOT Prescribed or Continued at Discharge Congestive Heart Failure Inclusion Criteria At DC or during hospital stay patient has or had the following: CHF DIAGNOSIS Yes Discharge Core Measures Meds if any: Prescribed or Continued at Discharge Meds if any: NOT Prescribed or Continued at Discharge Cerebrovascular accident Inclusion Criteria At DC or during hospital stay patient has or had the following: CVA/TIA Diagnosis No Discharge Core Measures Meds if any: Prescribed or Continued at Discharge Meds if any: NOT Prescribed or Continued at Discharge Venous thromboembolism Inclusion Criteria VTE Diagnosis No VTE Type NONE VTE Confirmed by (Test) NONE Discharge Core Measures - Per Current guidelines, there needs to be overlap - treatment for the first 5 days of Warfarin therapy. - If discharged on Warfarin prior to 5 days of - overlap therapy, the patient will need to be - assessed for post discharge needs including - *Post discharge parental anticoagulation - *Warfarin and/or parental anticoagulation education - *Follow up date to check INR post discharge At least 5 days overlap therapy as Inpatient No Meds if any: Prescribed or Continued at Discharge Note: Overlap Therapy is Warfarin and Anticoagulant Meds if any: NOT Prescribed or Continued at Discharge
[2016-06-20 08:01] VITALS: BP 118/59
--- NOTE | 2016-06-20 09:10 | PN- Cardiology ---
Subjective Subjective: Patient feels better. Still has some indigestion. Telemetry sinus rhythm. Objective Vital Signs and I&Os Vital Signs Date Time Temp Pulse Resp B/P Pulse O2 O2 Flow FiO2 Ox Delivery Rate 06/20 0801 97.9 65 18 118/59 96 Room Air 06/20 0735 97.9 65 18 118/59 96 Room Air 06/19 2353 98.8 77 18 120/58 95 Room Air 06/19 2208 97.5 75 15 141/64 95 Room Air Room Air 06/19 1855 99.7 77 15 147/65 96 Room Air Room Air 06/19 1737 97.7 77 18 147/65 96 Intake & Output 06/20 1600 06/20 0800 06/20 0000 06/19 1600 06/19 0800 06/19 0000 Intake Total 240 400 480 Output Total Balance 240 400 480 Intake, IV 0 0 Intake, Oral 240 400 480 Number 0 0 Bowel Movements Patient 180 lb Weight Physical Exam: Gen. exam patient comfortable sitting up in a chair. Head normocephalic atraumatic Eyes sclera anicteric conjunctiva showed no pallor extraocular muscles were normal Neck no jugular venous distention no thyroid masses no palpable nodes Chest lungs were clear bilaterally Heart regular rhythm grade 1/6 systolic murmur Abdomen soft no organomegaly bowel sounds normal physiological Extremities no clubbing cyanosis or pedal edema Neurological no gross motor or sensory deficits Current Medications: Current Medications Sig/Raffi Start time Last Medication Dose Route Stop Time Status Admin Acetaminophen 0 .STK-MED ONE 06/19 1833 DC PO Acetaminophen 325 MG Q6P PRN 06/18 2030 AC 06/19 PO 1835 Aspirin 0 .STK-MED ONE 06/19 1045 DC PO Aspirin 81 MG DAILY 06/19 1000 AC 06/19 PO 1054 Atorvastatin Calcium 40 MG 1700 06/19 1700 AC 06/19 PO 1804 Enoxaparin Sodium 0 .STK-MED ONE 06/19 1350 DC SC Enoxaparin Sodium 40 MG DAILY 06/19 1000 AC 06/19 SC 1445 Omeprazole 40 MG DAILY AC 06/19 0700 AC 06/20 PO 0509 Results Last 48 Hrs of Labs/Mics: Laboratory Tests 06/20/16 0507: Anion Gap 13, Estimated GFR > 60, BUN/Creatinine Ratio 17.8, CBC w Diff NO MAN DIFF REQ, RBC 4.66, MCV 84.9, MCH 28.6, RDW 12.9, MPV 8.4, Gran % 48.7, Lymphocytes % 37.1, Monocytes % 9.3, Eosinophils % 3.8, Basophils % 1.1, Absolute Granulocytes 2.9, Absolute Lymphocytes 2.2, Absolute Monocytes 0.5, Absolute Eosinophils 0.2, Absolute Basophils 0.1, PUBS MCHC 33.7 06/19/16 0153: Troponin I 0.06 06/18/16 1620: Troponin I 0.10 06/18/16 1308: Hemoglobin A1c 6.2 H 06/18/16 1308: Anion Gap 16, Estimated GFR > 60, BUN/Creatinine Ratio 10.0, Glucose 108 H, Calcium 9.6, Total Bilirubin 0.7, AST 26, ALT 36, Alkaline Phosphatase 94, Troponin I 0.05, Total Protein 7.9, Albumin 4.6, Globulin 3.3, Albumin/Globulin Ratio 1.4, Triglycerides 316 H, Cholesterol 269 H, LDL Cholesterol, Calc 166 H, HDL Cholesterol 40, Cholesterol/HDL Ratio 7 H, Lipase 77, CBC w Diff NO MAN DIFF REQ, RBC 4.97, MCV 83.8, MCH 28.7, RDW 12.6, MPV 8.8, Gran % 75.8 H, Lymphocytes % 17.4 L, Monocytes % 4.7, Eosinophils % 1.8, Basophils % 0.3, Absolute Granulocytes 5.2, Absolute Lymphocytes 1.2, Absolute Monocytes 0.3, Absolute Eosinophils 0.1, Absolute Basophils 0, PUBS MCHC 34.3 Assessment/Plan Assessment/Plan In summary this 66-year-old female presents with the following problems 1. New onset exertional chest pain 2. Hx of GERD 3. Hx of hiatal hernia 4. Ex-tobacco use 5. Abnormal ECG Because of her symptoms and her EKG changes Hence cardiac catheterization was suggested. This will be done tomorrow. The patient has to be transferred and be at [facility] at about 6:30 tomorrow in the morning. I will start her on low-dose beta blockers namely Lopressor 25 mg twice a day. Continue telemetry? Yes
--- NOTE | 2016-06-20 10:30 | Discharge Summary ---
Visit Information Visit Dates Admission Date: 06/18/16 Discharge Date: 06/21/16 Hospital Course Course Attending Physician: JOEL WATERS,THANG Lock Primary Care Physician: STACY WATERS,INO Romeo Hospital Course: This is a 66-year-old female with past medical history of GERD and hiatal hernia for 20 years presented to [place] emergency department - 06/18/2016 with chief complaint of burning type of substernal chest pain for last 7 days, 10 out of 10 , continuous, radiating to her back more worse with exertion and lying down. vitals at the emergency department were temperature of 98.6, pulse of 91, respiration of 18, blood pressure of 172/85, she was 99% saturating on room air. 2 sets of troponin were found to be 0.05 and 0.10. EKG showed normal sinus rhythm, rate of 75, T-wave inversion in aVR, V1 which were present on the EKG from 06/14/2016. SHe was awake alert oriented to time place and person, in no acute distress, a scar was seen on the neck from previous cervical fusion surgery, lungs were clear, heart had regular rate and rhythm, no murmurs, normal bowel sounds, no tenderness guarding or rigidity, no pedal edema. She was admitted to the telemetry floor for the treatment of following problems. #1 chest pain, to rule out acute coronary syndrome Three set of troponin and EKG were found to be 0.05... 0.10...0.06. EKG from 06/14/[address] depression in lead 2 and 3, current EKG showed pulse of 75, QTC of 429, normal axis and T-wave inversion in V1. Her 40 mg daily for GERD was continued. She was started on aspirin once daily, blood pressure was checked in both the hands and there was no significant difference found. He was also started on 40 mg of atorvastatin. Lipid profile was tested, and triglycerides were found to be 316, cholesterol 269, LDL 166 and HDL 40. Cardiology was on board. Given her exertional symptoms, it was decided to proceed for cardiac catheterization which is scheduled for the morning of 2015. Patient will be transferred to [facility] for the same. Patient was not started on heparin GTT as acute plaque rupture seems less likely. He was started on low-dose beta jose Lopressor 25 mg twice a day while inpatient and discharged on the same as well. #2 GERD PPI but continued while inpatient. She has a significant history of hiatal hernia. Allergies: Coded Allergies: No Known Allergies (06/18/16) Significant Procedures: SERVICE DATE: 06/18/16 EXAM TYPE: RAD - XRY-PORTABLE CHEST XRAY EXAMINATION: XR PORTABLE CHEST CLINICAL INFORMATION: Hiatal hernia. Worsening chest pain with reflux. COMPARISON: None. TECHNIQUE: 70 degrees AP semierect chest exam. FINDINGS: Both lungs are fairly well-expanded and clear of acute process. The heart size and pulmonary vascularity is normal. No gross bony abnormality seen. IMPRESSION: Unremarkable chest exam. Disposition Summary Disposition Principal Diagnosis: Stable Angina Additional Diagnosis: GERD Discharge Disposition: other general hospital Discharge Instructions General Discharge Information Code Status: Full Code Patient's Diet: heart healthy Patient's Activity: As tolerated Follow-Up Instructions/Appts: PLEASE FOLLOW UP WITH YOUR PCP AND DIRECT CUSTOMER SERVICE REPRESENTATIVE WITHIN ONE WEEK OF DISCHARGE. PLEASE CONTINUE TAKING YOUR MEDICATIONS PRESCRIBED. Medications at Discharge Discharge Medications: Continue taking these medications: Dexlansoprazole (Dexilant) 60 MG KALINA.BP 1 Capsule ORAL DAILY Start taking the following new medications: Atorvastatin Calcium (Atorvastatin Calcium) 40 MG TABLET 1 Tablet ORAL DAILY Days = 60 No Refills Aspirin (Aspirin*) 81 MG TAB.CHEW 1 Tablet ORAL DAILY Days = 30 Refills = 1 Metoprolol Succinate (Metoprolol Succinate) 25 MG TAB 1 Tablet ORAL TWICE DAILY Qty = 30 No Refills Copies To: STACY WATERS,INO Romeo; DILIP WATERS,MAIKEL Samaniego MD Review Statement Documenting Attending: JOEL WATERS,THANG Lock
[2016-06-20] MEDS ORDERED: TOPROL XL25 M1 PO (15:19)
[2016-06-20] MEDS ORDERED: METOPROLOL SUCC25 M1 PO (15:25)
--- NOTE | 2016-06-20 15:59 | NUR ---
MESSAGE LEFT WITH [facility] TO INQUIRE ABOUT TIME OF ECHO TODAY AND PENDING DISPO. MANAGER OF PHOTOGRAPHY PUTTING TOGETHER PACKET FOR CAVING GUIDE TRANSFER TOMORROW
--- NOTE | 2016-06-20 19:12 | NUR ---
ACCEPTING MD AT [facility] SENIOR TREASURY CONSULTANT. PT TO GO TO CARDIAC ECHO SHORTLY. DAUGHTERS TAKING HOME PT CELL PHONE, CLOTHING AND GLASSES
[2016-06-20 22:03] VITALS: BP 140/63
--- NOTE | 2016-06-20 22:50 | NUR ---
[facility] CALLED TO BOOK TRANSPORTATION FOR THE MORNING. CLINICAL BIOSTATISTICS DIRECTOR WILL BE FOR 4:30AM. PT SCHEDULED FOR 6:00AM AT [facility]. TRANSFER PAPERWORK IS IN THE CHART
--- NOTE | 2016-06-20 23:06 | NUR ---
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
--- NOTE | 2016-06-21 03:52 | NUR ---
AWAITS [facility] FOR MILK INSPECTOR TRANSFER. STABLE SLEEPING WELL NAD.
--- NOTE | 2016-06-21 05:17 | NUR ---
[facility] REBOOKED FOR 0800 SUPERVISOR CELLARS PER RN ROLAND. SCHEDULED WITH RONALDO FROM [facility].
--- NOTE | 2016-06-21 05:26 | NUR ---
PER RO AT [facility] TRAINING DEVELOPMENT MANAGER, PT IS NOT ON THEIR LIST OR ON THEIR LIST OF ADD ONS. SHE SPOKE WITH HOSPITALIST DR. FOSTER WHO HAS TO "CLARIFY" PLAN THIS AM. REQUESTED [facility] BE BOOKED FOR SLATE HANDLER AT 0800. REPORT WAS GIVEN TO CHRISTEN.
[2016-06-21 06:15] VITALS: BP 152/73
--- NOTE | 2016-06-21 07:01 | ECHOCARDIOGRAM REPORT ---
RAY HOGAN Age: 66 : 1950 Gender: F Exam Date: 06/20/2016 19:28 Exam Location: ER Ht (in): 62 Wt (lb): 185 BSA: 1.95 BP: 131 / 59 Ordering Physician: JULIO CESAR LORENZANA, Referring Physician: Chidi Palomares M.D. Technologist: Reina Weber RDCS Room Number: [id number] Indications: CHEST PAIN Rhythm: Sinus Technical Quality: fair FINDINGS Left Ventricle Normal size left ventricle. Left ventricular wall thickness mildly increased. Normal left ventricular ejection fraction estimated at 60-65%. Right Ventricle Normal right ventricular size and function. Right Atrium Normal right atrial size. Left Atrium Normal left atrial size. Mitral Valve Structurally normal mitral valve. Trace mitral regurgitation. Aortic Valve Aortic valve not well visualized, grossly normal. Tricuspid Valve Tricuspid valve not well visualized, grossly normal. Trace to mild tricuspid regurgitation. Right ventricular systolic pressure estimated to be within the normal range at less than 25 mmHg. Pulmonic Valve Pulmonic valve not well visualized, grossly normal. Pericardium No pericardial effusion. Great Vessels Normal size aortic root. CONCLUSIONS Normal left and right ventricular systolic function. Mild LVH. No significant valvular abnormalities noted. Froy Link M.D. (Electronically Signed) Final Date: 21 June 2016 07:01 MEASUREMENTS (Male / Female) Normal Values 2D ECHO LV Diastolic Diameter PLAX 4.1 cm 4.2 - 5.9 / 3.9 - 5.3 cm LV Systolic Diameter PLAX 1.4 cm 2.1 - 4.0 cm LV Fractional Shortening PLAX 65.9 % 25 - 46 % LV Ejection Fraction 2D Teich 93.2 % IVS Diastolic Thickness 1.2 cm LVPW Diastolic Thickness 1.2 cm LV Relative Wall Thickness 0.6 RV Internal Dim ED PLAX 2.1 cm 1.9 - 3.8 cm LVOT Diameter 1.9 cm Aortic Root Diameter 2.4 cm LA Systolic Diameter LX 3.5 cm 3.0 - 4.0 / 2.7 - 3.8 cm LA Volume 25.0 cm 18 - 58 / 22 - 52 cm Ascending Aorta Diameter 3.1 cm DOPPLER AV Peak Velocity 155.0 cm/s AV Peak Gradient 9.6 mmHg AV Mean Velocity 99.1 cm/s AV Mean Gradient 5.0 mmHg AV Velocity Time Integral 29.3 cm LVOT Peak Velocity 91.7 cm/s LVOT Peak Gradient 3.4 mmHg LVOT Mean Velocity 58.2 cm/s LVOT Mean Gradient 2.0 mmHg LVOT Velocity Time Integral 19.2 cm LVOT Stroke Volume 54.4 cm AV Area Cont Eq vti 1.9 cm AV Area Cont Eq pk 1.7 cm MV Peak Velocity 84.1 cm/s MV Peak Gradient 2.8 mmHg MV Mean Velocity 50.6 cm/s MV Mean Gradient 1.0 mmHg Mitral E Point Velocity 74.5 cm/s Mitral A Point Velocity 74.5 cm/s Mitral E to A Ratio 1.0 MV PHT Velocity 84.8 cm/s MV Deceleration [place] 316.0 cm/s MV Pressure Half Time 80.5 ms MV Area PHT 2.7 cm MV Deceleration Time 224.0 ms TR Peak Velocity 116.0 cm/s TR Peak Gradient 5.4 mmHg Right Atrial Pressure 5.0 mmHg Pulmonary Artery Systolic Pressu 10.4 mmHg Right Ventricular Systolic Press 10.4 mmHg PV Peak Velocity 94.0 cm/s PV Peak Gradient 3.5 mmHg PV Mean Velocity 64.4 cm/s PV Mean Gradient 2.0 mmHg PV Velocity Time Integral 18.3 cm LV E' Lateral Velocity 7.4 cm/s Mitral E to LV E' Lateral Ratio 10.1 LV E' Septal Velocity 7.3 cm/s Mitral E to LV E' Septal Ratio 10.2
--- NOTE | 2016-06-21 07:56 | NUR ---
Pt transferred to [facility] Applied Marine Physics Professor via [facility]. Report given to RN at [facility] Applied Marine Physics Professor.
== END 2016-06-21 08:02 | disposition short-term general hospital (02) | DRG 313 ==
LOC: ERH 12:16 → ERHI 17:52
PROVIDERS: Emergency Medicine; Internal Medicine; ADMIT Internal Medicine
DX: R07.9 Chest pain, unspecified (principal); E78.5 Hyperlipidemia, unspecified; K21.9 Gastro-esophageal reflux disease without esophagitis; K44.9 Diaphragmatic hernia without obstruction or gangrene; Z87.891 Personal history of nicotine dependence
CPT/HCPCS: ERO; 82436; 93005; 93010; 93306; 96374; 96375; J1650; J2765; J3490